=== PATIENT | female | born 1945 | race American Indian/Alaskan Native ===

== ENCOUNTER 2018-11-15 08:41 | Emergency (ER) | payer MEDICARE ==
[2018-11-15 08:53] VITALS: BMI 30.2
[2018-11-15 08:59] VITALS: TEMP 97.4
[2018-11-15 09:01] VITALS: RESP 16
[2018-11-15] MEDS ORDERED: Sodium Chloride 0.9% 500 ML IV STA (09:32)
--- NOTE | 2018-11-15 09:39 | ED PDOC ---
Arrival/HPI - General Historian: Patient - History of Present Illness Narrative History of Present Illness (Text): 11/15/18 09:36 73F w/ PMH of Bowel Resection s/p colostomy and [place] [address] Mccain, Cholecystectomy, Hernias presenting for 1week complaints of inability to defecate. Patient reports that symptoms have been worsening over the week and is complaining of severe rectal pressure/ pain. Patient reported that 1 week ago she tried to eat w/o dentures which may have instigated event. She denies any chest pain, sob, cough, abd pain, n/v/, decreased/change in appetite, urinary symptoms. PMH: HTN PSH: as above Social: active smoker 1/2 ppd, denies Etoh/illicit drug use PMD: Dr. Odonnell Time/Duration: Prior to Arrival, 1 week ( ) <Charli Olmstead - Last Filed: 11/15/18 16:06> <Devyn Chavez - Last Filed: 11/16/18 18:59> - General Chief Complaint: GI Problem Time Seen by Provider: 11/15/18 08:45 Past Medical History - Provider Review Nursing Documentation Reviewed: Yes - Cardiac Hx Hypertension: Yes - Psychiatric Hx Substance Use: No - Surgical History Hx Cholecystectomy: Yes Other/Comment: Colostomy. Colostomy reversal - Anesthesia Hx Anesthesia: Yes Hx Anesthesia Reactions: No Hx Malignant Hyperthermia: No <Charli Olmstead - Last Filed: 11/15/18 16:06> Family/Social History Family/Social History: Unknown Family HX Smoking Status: Light Smoker < 10 Cigarettes Daily Hx Alcohol Use: No Hx Substance Use: No <Charli Olmstead - Last Filed: 11/15/18 16:06> Allergies/Home Meds <Charli Olmsteda - Last Filed: 11/15/18 16:06> <Devyn Chavez - Last Filed: 11/16/18 18:59> Allergies/Adverse Reactions: Allergies tetracycline Allergy (Verified 11/15/18 08:52) ANAPHYLAXIS Home Medications: Home Meds Medication Instructions Recorded Confirmed Atorvastatin [Lipitor] 10 mg PO DAILY 11/15/18 11/15/18 HCTZ/Losartan Potassium [Hyzaar 10 mg PO DAILY 11/15/18 11/15/18 12.5 mg-50 mg] amLODIPine [Norvasc] 5 mg PO DAILY 11/15/18 11/15/18 Review of Systems - Physician Review All systems were reviewed & negative as marked: Yes - Review of Systems Constitutional: Normal Eyes: Normal ENT: Normal Respiratory: Normal Cardiovascular: Normal Gastrointestinal: Stool Changes, Constipation. absent: Diarrhea, Nausea, Appetite Changes, Anorexia Genitourinary Female: Normal Musculoskeletal: Normal Skin: Normal Neurological: Normal Endocrine: Normal Hemo/Lymphatic: Normal Psychiatric: Normal <Charli Olmstead - Last Filed: 11/15/18 16:06> Physical Exam Vital Signs Temp Pulse Resp BP Pulse Ox 11/15/18 09:00 94 H 16 158/89 H 95 11/15/18 08:42 97.4 F L 89 18 158/89 H 98 Temperature: Afebrile Blood Pressure: Hypertensive Pulse: Regular Respiratory Rate: Normal Appearance: Positive for: Well-Appearing, Non-Toxic, Comfortable Pain Distress: None Mental Status: Positive for: Alert and Oriented X 3 - Systems Exam Head: Present: Atraumatic, Normocephalic Pupils: Present: PERRL Extroacular Muscles: Present: EOMI Mouth: Present: Moist Mucous Membranes Respiratory/Chest: Present: Clear to Auscultation, Good Air Exchange. No: Respiratory Distress Cardiovascular: Present: Regular Rate and Rhythm, Normal S1, S2. No: Murmurs Abdomen: Present: Scars, Other (LUQ hernia). No: Tenderness, Distention Rectal: No: Other (Rectal exam performed by Dr. Chavez; Good rectal tone; Brown stool present in rectal vault, scars appreciated on perirectal region, No fissure or hemorrhoid, ) Lower Extremity: Present: NORMAL PULSES Neurological: Present: GCS=15, CN II-XII Intact Skin: Present: Warm, Dry, Normal Color Psychiatric: Present: Alert, Oriented x 3 <Charli Olmstead - Last Filed: 11/15/18 16:06> Vital Signs Temp Pulse Resp BP Pulse Ox 11/15/18 13:40 83 16 158/88 H 97 11/15/18 12:23 82 16 153/81 H 98 11/15/18 10:03 79 16 134/75 95 11/15/18 09:00 94 H 16 158/89 H 95 11/15/18 08:42 97.4 F L 89 18 158/89 H 98 <Devyn Chavez - Last Filed: 11/16/18 18:59> Medical Decision Making ED Course and Treatment: 11/15/18 09:46 73F w/ hx significant 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 presenting w/ c/o constipation x1 wk ; patient uncomfortable on presentation however no sig Given prior hx will need to r/o rectal mass EKG CBC/CMP Bedside FOBT negative CTAP w/ PO contrast Toradol NS 500cc Bolus 11/15/18 14:54 CTAP W/ PO contrast --> Significant Fecal Retention, Constipation, Impaction Will admin Fleet Enema 11/15/18 16:07 Patient tolerated fleet enema - had BM Will DC Pt home w/ Laxative - Lab Interpretations I have reviewed the lab results: Yes (Mild leukocytosis ) - RAD Interpretation Radiology Orders: 11/15/18 09:32 ABD PELVIS PO & IV CONTRAST [CT] Stat - EKG Interpretation EKG Interpretation (Text): 11/15/18 10:41 NSR HR 79, Left axis deviation, QRS: 144mm, QTc 488, questionable intraventricular block, No ST/T wave abnormalities Interpreted by ED Physician: Yes - Medication Orders Current Medication Orders: Sodium Chloride (Sodium Chloride 0.9%) 500 mls @ 1,000 mls/hr IV .Q30M STA Stop: 11/15/18 10:01 Ketorolac Tromethamine (Toradol) 30 mg IVP STAT STA Stop: 11/15/18 09:33 <IshanCharli - Last Filed: 11/15/18 16:06> ED Course and Treatment: 11/15/18 09:48 Patient is a 73 year old female presenting to the emergency room ocmplaining of an inability to amke a bowel movement. In agreement with resident note, which includes further HPI details. Patient was seen and evaluated with resident, came up with plan and treatment together. PMD: Mariela Wakefield Surgeon: Robbie Miller Plan: -- EKG -- Toradol -- IV fluids EKG: Ordered, reviewed, and independently interpreted the EKG. Rate : 79 BPM Rhythm : NSR Interpretation : Non-specific interventricular block. 11/15/18 16:[address] reviewed with patient. She was able to pass a bowel movement in the ED with fleet enema. Symptoms improved and no longer has pain. Patient will f/u with PMD. - Lab Interpretations Lab Results: PT 11.2 SECONDS (9.4-12.5) 11/15/18 09:48 INR 0.99 11/15/18 09:48 APTT 38.2 Seconds (26.9-38.3) 11/15/18 09:48 Total Bilirubin 0.3 mg/dL (0.2-1.3) 11/15/18 09:48 AST 28 U/L (14-36) 11/15/18 09:48 ALT 28 U/L (7-56) 11/15/18 09:48 Alkaline Phosphatase 83 U/L (38-126) 11/15/18 09:48 Total Protein 8.0 g/dL (5.8-8.3) 11/15/18 09:48 Albumin 4.6 g/dL (3.0-4.8) 11/15/18 09:48 Globulin 3.5 gm/dL 11/15/18 09:48 Albumin/Globulin Ratio 1.3 (1.1-1.8) 11/15/18 09:48 Lipase 281 U/L (23-300) 11/15/18 09:48 - RAD Interpretation Radiology Orders: 11/15/18 09:32 ABD PELVIS PO & IV CONTRAST [CT] Stat - Medication Orders Current Medication Orders: Discontinued Medications Sodium Chloride (Sodium Chloride 0.9%) 500 mls @ 1,000 mls/hr IV .Q30M STA Stop: 11/15/18 10:01 Last Admin: 11/15/18 10:02 Dose: 1,000 mls/hr eMAR Start Stop Document 11/15/18 10:02 MA (Rec: 11/15/18 10:02 MA [facility] [id number]) Intravenous Solution Start Date 11/15/18 Start Time 10:02 Ketorolac Tromethamine (Toradol) 30 mg IVP STAT STA Stop: 11/15/18 09:33 Last Admin: 11/15/18 09:51 Dose: 30 mg MAR Pain Assessment Document 11/15/18 09:51 MA (Rec: 11/15/18 09:54 MA [facility] [id number]) Pain Reassessment Is this a pain reassessment? Yes Sleep Is patient sleeping during reassessment? No Presence of Pain Presence of Pain Yes Pain Scale Used Protocol: PSCALES Pain Scale Used Numeric Location Pain Location Body Site Sacrum Description Description Pressure Intensity of Pain at present 7 Pain Behavior Moaning Irritability Aggravating Factors Changing Position Alleviating Factors/Management Medication Techniques IVP Administration Document 11/15/18 09:51 MA (Rec: 11/15/18 09:54 MA [facility] [id number]) Charges for Administration # of IVP Administrations 1 Re-Assess: KAT Pain Assessment Document 11/15/18 10:51 MA (Rec: 11/15/18 11:25 MA [facility] [id number]) Pain Reassessment Is this a pain reassessment? Yes Sleep Is patient sleeping during reassessment? No Presence of Pain Presence of Pain Yes Pain Scale Used Protocol: PSCALES Pain Scale Used Numeric Location Pain Location Body Site Sacrum Description Description Pressure Intensity of Pain at present 1 Pain Behavior Moaning <Devyn Chavez - Last Filed: 11/16/18 18:59> - PA / [employer] / Resident Statement / has reviewed & agrees with the documentation as recorded. MD/ has examined the patient and agrees with the treatment plan. - Scribe Statement The provider has reviewed the documentation as recorded by the [place] [place] All medical record entries made by the Rohitibfawad were at my direction and personally dictated by me. I have reviewed the chart and agree that the record accurately reflects my personal performance of the history, physical exam, me dical decision making, and the department course for this patient. I have also personally directed, reviewed, and agree with the discharge instructions and disposition. <Devyn Chavez - Last Filed: 11/16/18 18:59> Disposition/Present on Arrival - Present on Arrival Any Indicators Present on Arrival: No History of DVT/PE: No History of Uncontrolled Diabetes: No Urinary Catheter: No History of Decub. Ulcer: No History Surgical Site Infection Following: None - Disposition Have Diagnosis and Disposition been Completed?: Yes Disposition Time: 15:29 Patient Plan: Discharge <Charli Olmstead - Last Filed: 11/15/18 16:06> <Devyn Chavez - Last Filed: 11/16/18 18:59> - Disposition Diagnosis: Constipation Disposition: HOME/ ROUTINE Condition: STABLE Discharge Instructions (ExitCare): Constipation, Adult (DC) Additional Instructions: PERCY ANGELES, thank you for letting us take care of you today. Your provider was Devyn Chavez DO/ Charli Olmstead DO and you were treated for CONSTIPATION. The emergency medical care you received today was directed at your acute symptoms. If you were prescribed any medication, please fill it and take as directed. It may take several days for your symptoms to resolve. Return to the Emergency Department if your symptoms worsen, do not improve, or if you have any other problems. Please contact your doctor or call one of the physicians/clinics you have been referred to that are listed on the Patient Visit Information form that is included in your discharge packet. Bring any paperwork you were given at discharge with you along with any medications you are taking to your follow up visit. Our treatment cannot replace ongoing medical care by a primary care provider outside of the emergency department. Thank you for allowing the [facility] team to be part of your care today. If you had an X-Ray or CT scan: A Radiologist will review the ED reading if any change in treatment is needed we will contact you. If you had a blood, urine, or wound culture: It will take several days for the results, if any change in treatment is needed we will contact you. If you had an STI test: It will take 48 hours for the results. Please call after 1 week if you have not heard back. Prescriptions: Docusate [Colace] 100 mg PO BID #60 cap Referrals: Mariela Odonnell MD [Primary Care Provider] - Follow up with primary Forms: [employer] ([place]ian)
[2018-11-15 10:08] LABS: BASO # 0.05 K/mm3 (0.0-2.0); BASO % 0.4 % (0.0-3.0); EOS # 0.2 (0.0-0.7); EOS % 1.1 % (1.5-5.0); LYMPH # 2.9 (1.2-3.4); LYMPH % 21.6 % (22.0-35.0); MEAN CELL VOLUME 66.8 fl (80.0-105.0); MEAN CORPUSCULAR HEMOGLOBIN 21.1 pg (25.0-35.0); MEAN CORPUSCULAR HGB CONC 31.5 g/dl (31.0-37.0); MEAN PLATELET VOLUME 9.5 fl (7.0-11.0); MONO # 0.5 (0.1-0.6); MONO % 3.8 % (1.0-6.0); RBC 5.7 10^6/uL (3.5-6.1); RED CELL DISTRIBUTION WIDTH 16.8 % (11.5-14.5); WHITE BLOOD COUNT 13.4 10^3/uL (4.5-11.0)
[2018-11-15 10:22] LABS: INR 0.99; PARTIAL THROMBOPLASTIN TIME 38.2 Seconds (26.9-38.3); PROTHROMBIN TIME 11.2 SECONDS (9.4-12.5)
[2018-11-15 10:23] LABS: ALB/GLOB RATIO 1.3 (1.1-1.8); ALBUMIN 4.6 g/dL (3.0-4.8); ALT/SGPT 28 U/L (7-56); AST/SGOT 28 U/L (14-36); BLOOD UREA NITROGEN 16 mg/dL (7-21); GFR NON-AFRICAN AMERICAN > 60; LIPASE 281 U/L (23-300)
[2018-11-15] MEDS ORDERED: Iohexol 240 (50 ml) ONE (10:35)
[2018-11-15] MEDS ORDERED: Iohexol 350 MG/100 ML VIAL ONE (12:50)
--- NOTE | 2018-11-15 14:03 | CT ---
Date of service: 11/15/2018 PROCEDURE: CT Abdomen and Pelvis . HISTORY: Abdominal pain r/o obstruction COMPARISON: None. TECHNIQUE: Contiguous axial images of the abdomen and pelvis performed following oral and intravenous injection of approximately 100 cc Omnipaque 350 contrast material. Additional 2D sagittal and coronal reformats generated. Radiation dose: Total exam DLP = 650.7 mGy-cm. This CT exam was performed using one or more of the following dose reduction techniques: Automated exposure control, adjustment of the mA and/or kV according to patient size, and/or use of iterative reconstruction technique. FINDINGS: LOWER THORAX: Heart size within range of normal. No significant pericardial effusion. There is a small hiatal hernia. Mild chronic atelectasis/scarring changes seen in both lung bases including the lingular and middle lobe regions. LIVER: Liver exhibits normal size. There is mild diffuse fatty hepatic infiltration. No obvious hepatic mass collection or calcification. Portal and splenic veins are opacified. GALLBLADDER AND BILE DUCTS: Cholecystectomy PANCREAS: Pancreas appears unremarkable without mass collection or calcification. SPLEEN: Unremarkable. No splenomegaly. ADRENALS: There are no adrenal lesions. KIDNEYS AND URETERS: Kidneys demonstrate symmetric nephrograms. No stone or hydronephrosis. BLADDER: Urinary bladder is incompletely distended which may in part account for slight thick-walled appearance. Muscular hypertrophy presumably contributes. Note is made of a tiny calcification which appears to be located along the anterior wall of the urinary bladder unchanged from prior study. REPRODUCTIVE: Unremarkable. APPENDIX: The appendix not seen however there appear to be radiopaque suture material and/or clips in the along the wall of the cecum likely related to prior appendectomy however clinical correlation with surgical history recommended. BOWEL: Evaluation of the bowel slightly limited due to incomplete opacification. The stomach is incompletely distended with slight thick-walled appearance. Prominent rugal fold pattern.. There are 2 ventral wall hernias on the more superiorly located hernia containing mesenteric fat and a short segment of the proximal transverse colon. The more inferiorly located ventral wall hernia centrally into the right extending from the mid to lower abdomen into the upper pelvis region contains a what appear to be at least 2 loops of unobstructed small bowel The visualized loops of small bowel exhibit relatively normal contour and caliber. Large amount of stool is seen throughout the entire colon consistent with fecal retention/constipation with apparent fecal impaction changes in the rectum as well. PERITONEUM: Unremarkable. No fluid collection. No free air. LYMPH NODES: Unremarkable. No enlarged lymph nodes. VASCULATURE: Unremarkable. No aortic aneurysm. Mild aortic atherosclerotic calcification or mural plaque present. BONES: Mild multilevel degenerative spondylosis of the lower thoracic and lumbar spine. OTHER FINDINGS: None. IMPRESSION: There are 2 ventral wall hernias on the more superiorly located hernia containing mesenteric fat and a short segment of the proximal transverse colon. The more inferiorly located ventral wall hernia centrally into the right extending from the mid to lower abdomen into the upper pelvis region contains a what appear to be at least 2 loops of unobstructed small bowel and mesenteric fat as well.. Large amount of stool is seen throughout the entire colon consistent with fecal retention/constipation with apparent fecal impaction changes in the rectum as well Apparent appendectomy Mild fatty hepatic infiltration. Cholecystectomy.
[2018-11-15 16:05] VITALS: BP 165/79; PULSE 89; O2SAT 97
--- NOTE | 2018-11-15 20:02 | CARD ---
APPROVED REPORT Date of service: 11/15/2018 EKG Measurement Heart [id number] ID [id number] <Conclusion> Normal sinus rhythm Left axis deviation Nonspecific intraventricular block Abnormal ECG
== END 2018-11-15 15:55 | disposition home or self-care (01) ==
LOC: ED 08:41
DX: K59.00 Constipation, unspecified (principal); I10 Essential (primary) hypertension; Z93.3 Colostomy status; F17.210 Nicotine dependence, cigarettes, uncomplicated
CPT/HCPCS: 74177; 80053; 83690; 83735; 85025; 85610; 85730; 93005; 96374; 99285; J1885; J7040; Q9966; Q9967

== ENCOUNTER 2018-11-20 10:00 | Outpatient (CLI) | payer MEDICARE | END 2018-11-20 10:01 | disposition home or self-care (01) | LOC: RAD 10:00 ==